=== PATIENT | female | born 1955 | race Caucasian/White ===

== ENCOUNTER → 2022-01-30 | Outpatient (CLI) | payer MEDICARE | LOC: CARD 12:24 | PROVIDERS: ATTEND Internal Medicine Cardiovascular Disease | DX: R07.89 Other chest pain (principal) | CPT/HCPCS: 93306 ==

== ENCOUNTER → 2022-02-28 | Outpatient (CLI) | payer MEDICARE, OTHER ==
[~2022-02-28] MED LIST: CATHETER FLUSH 10 ML SYR IVP PRN; REGADENOSON 0.4 MG/5 ML SYR (LEXISCAN) IV ONE
[2022-02-28 09:18] VITALS: BP 142/78
[2022-02-28 09:22] VITALS: BP 155/74
--- NOTE | 2022-02-28 15:46 | STRESS TEST ---
DATE OF SERVICE: 02/28/2022 RESTING AND POST REGADENOSON TECHNETIUM-[address] IMAGING ORDERING PHYSICIAN: Dr. Hurst. PRIMARY PHYSICIAN: Dr. Sow. CLINICAL DIAGNOSIS: Chest discomfort. DESCRIPTION OF PROCEDURE: Baseline images were carried out after injection of 10.95 mCi of technetium-99m Tetrofosmin. This was followed by 0.4 mg and 29.5 mCi of technetium-99m tetrofosmin for stress imaging. The electrocardiogram showed sinus rhythm at baseline. It did not change significantly with the regadenoson infusion. Review of images at rest and following stress does not indicate any distinct perfusion defects consistent with significant myocardial ischemia or infarction. Some degree of diaphragmatic attenuation is seen both at rest and following regadenoson infusion. Gated images show normal global left ventricular systolic function with normal regional wall motion, including the diaphragmatic wall of the left ventricle. Left ventricular ejection fraction is calculated to be 75%. CONCLUSIONS: 1. No evidence of significant myocardial ischemia or infarction. 2. Normal regional wall motion. 3. Normal global LV systolic function with a calculated ejection fraction 75%. Job ID: [id number] DocumentID: [id number] Dictated Date: 02/28/2022 12:41:48 Night Nurse Date: 02/28/2022 15:45:00 Dictated By: CYNDIE HURST MD; PEGGY; FACP; FACC; ELISSA
== END ==
LOC: CARD 07:30
PROVIDERS: ATTEND Internal Medicine Cardiovascular Disease
DX: R07.89 Other chest pain (principal)
CPT/HCPCS: 78452; 93017; A9502